=== PATIENT | male | born 1980 | race Caucasian/White ===

== ENCOUNTER → 2024-05-01 09:39 | Outpatient (REF) | payer MEDICARE, SELFPAY | LOC: RCS 09:39 | PROVIDERS: ATTENDING PHYSICIAN Registered Nurse; FAMILY PHYSICIAN Family Medicine | DX: R94.31 Abnormal electrocardiogram [ECG] [EKG] (principal) | CPT/HCPCS: 93005 ==

== ENCOUNTER → 2025-05-03 14:38 | Outpatient (REF) | payer MEDICARE, SELFPAY | LOC: RCS 14:38 | PROVIDERS: ATTENDING PHYSICIAN Registered Nurse; FAMILY PHYSICIAN Family Medicine | DX: R94.31 Abnormal electrocardiogram [ECG] [EKG] (principal) | CPT/HCPCS: 93005 ==